=== PATIENT | female | born 2005 | race Caucasian/White ===

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

== ENCOUNTER 2025-02-18 07:09 | Emergency (ER) | payer BC, SELFPAY ==
--- OUTSIDE RECORDS SUMMARY | 2025-02-18 07:11 | XMS_ITS | Clinical Summary ---
Author Organization [place] Address [facility] [place] [address] Care Team Providers Care Cushion Sewer Name Role Phone Augustine Elizabeth MD Unavailable [phone] Shahnaz Singletary Primary Care Provider [phone] Denys Ruiz MD Unavailable [phone] David Aj DO Unavailable [phone] Allergies Active AllergyReactionsCriticalityNoted DateCommentsLatexDizziness,Hives,Rash, Shortness Of RvecdnGjcs41/25/2023SoapHives,CcfaZana83/14/2018 Medications MedicationSigDispense QuantityRefillsLast FilledStart DateEnd DateStatus ferrous sulfate (FEROSUL) 325 (65 Fe) MG tablet Take 325 mg by mouth daily (with breakfast)Active ibuprofen (ADVIL/MOTRIN) 600 MG tablet Take 600 mg by mouth08/05/2021ctive Vit-Fe Fumarate-FA (PNV PLUS MULTIVITAMIN) 27-1 MG TABS per tablet Take 1 tablet by mouth dailyActive amoxicillin (AMOXIL) 400 MG/5ML suspension Indications:S/P tonsillectomyTake 10 mLs (800 mg) by mouth 2 times daily 20 mL 02/24/2023ctive 27-1 MG TABS Take 1 tablet by mouth daily08/01/2023ctive progesterone (PROMETRIUM) [address] 200 mg vaginally daily08/15/2023ctive metroNIDAZOLE (FLAGYL) 500 MG tablet Take 500 mg by mouth 2 times daily08/17/2023ctive magnesium chloride 535 (64 Mg) MG TBEC CR tablet Take 535 mg by mouth daily11/26/2022ctive Active Problems ProblemNoted DateDiagnosed DateChronic sore yqbozg7602/16/2023ryptic tonsil 02/16/2023hronic wirfkpybwwr35/14/2023 Family History Medical HistoryRelationCommentsAsthmaBrotherAsthmaMotherThyroid DiseaseMother ArthritisOthergrandparentsCancerOthergrandparentsCerebrovascular DiseaseOther grandmotherHypertensionOthergrandparentsAllergiesSisterRelationStatusComments BrotherMotherOtherSister Social History Tobacco UseTypesPacks/DayYears UsedDateSmoking Tobacco: NeverSmokeless Tobacco: Never Tobacco Cessation:Counseling Given: Not Answered Alcohol UseStandard Drinks/WeekCommentsNever0 (1 standard drink = 0.6 oz pure alcohol)PHQ-2AnswerDate RecordedPHQ-2 Sgbrw515dolescent EducationAnswer Date RecordedGetting School Help NeededNot on file12/03/2022CommentsNo Sex and Gender InformationValueDate RecordedSex Assigned at BirthNot on file Legal PjuXallnj15/04/2012 5:03 AM CSTGender IdentityNot on fileSexual OrientationNot on file Last Filed Vital Signs Vital SignReadingTime TakenCommentsBlood Phceptyp913/7002/24/2023 1:56 PM CHIEF SECURITY AND SAFETY OFFICER Oguri979402/24/2023 1:56 PM SBAKeqxaonprpf41.4 ??C (97.6 ??F)02/24/2023 1:56 PM CSTRespiratory Sqdw775704/27/2022 1:56 PM CSTOxygen Hhzqfwcetk95%02/24/2023 1:56 PM CSTInhaled Oxygen Concentration--Mcxaff55.6 kg (109 lb 5.6 oz)02/20/2023 11:14 AM CUOZwkkmk942 cm (5' 2.6)02/20/2023 11:14 AM CSTBody Mass Index19.62 02/20/2023 11:14 AM CHIEF SECURITY AND SAFETY OFFICER Plan of Treatment Health MaintenanceDue DateLast DoneCommentsADVANCE CARE SSBPUGNO2004ANNUAL REVIEW OF HM YXMMOA51 2004CHLAMYDIA MCPTBPBVZ2004YEARLY PREVENTIVE VISITPHQ-2 (once per calendar year)/03/2021 COVID-19 VACCINE (4 - season)/, 07/23/2020, 06/26/2020INFLUENZA VACCINE (#1)/, 12/07/2021, 11/12/2020, Additional history evwlxvTEX05/25/2025DTAP/TDAP/TD VACCINE (7 - Td or Tdap) , 06/30/2008, 06/27/2005, Additional history existsZOSTER VACCINE (1 of 2)01/28/2054HEPATITIS B RYDBAOWFcxdzjfzn86/26/2005, 2004, 2004, Additional history existsPNEUMOCOCCAL VACCINE: PEDIATRICS (0 to 5 YEARS) AND AT-RISK PATIENTS (6 to 49 YEARS)Aged Out03/03/2005, 2004, 2004, Additional history existsNo longer eligible based on patient's age to complete this topicHPV YUHDXTJJzitfshfh03/28/2017, 01/21/2016MENINGITIS PYHCOPWMhixcjxfi90/16/2021, 01/21/2016MENINGITIS B FJFBTKDAjokrbpjy12/14/2023, 11/19/2020HIV XEGFCJDLTJpvertasn55/27/2024HEPATITIS C SCREENINGCompleted 05/31/2023 Insurance * Guarantor: Lien ESPINOZA TypeRelation to PatientDate of BirthPhoneBilling AddressPersonal/KxszcrCcqmqb67/22/1975 [address] [place] [address] * Guarantor: Nima Espinoza TypeRelation to PatientDate of BirthPhone Billing AddressPersonal/CwhsxmZquw2004 [address] [address] [place] [address] * Guarantor: Lien ESPINOZA TypeRelation to PatientDate of BirthPhoneBilling AddressPersonal/OacohrPnduwo48/22/1975 [address] [place] [address] * Guarantor: Nima Espinoza TypeRelation to PatientDate of BirthPhone Billing AddressPersonal/HnxbytAnhr2004 [address] [address] [address] [place] [address] Care Teams Team MemberRelationshipSpecialtyStart DateEnd Date Shahnaz Singletary [address] [place] [address] PCP - General05/13/22 Augustine Elizabeth MD [facility] [address] [address] [place], Clinical06/03/21 Denys Ruiz MD [address] [facility] [address] [place], [place] [address] CQYizsveqlgzvytm47/2/23 David Aj DO [address] [place], [place] [address] [facility]09/26/23
--- OUTSIDE RECORDS SUMMARY | 2025-02-18 07:11 | XMS_ITS | Clinical Summary ---
Author Organization [facility] Address [address] [place] [address] Care Team Providers Care Wood Craftsman Name Role Phone Joanna Gerber MD Primary Care Provi shyla Allergies Active AllergyReactionsCriticalityNoted JebrVvvfbrszXgyslExzolBwovdk26/26/2024 CbfsYvtweOdjnbs60/26/2024 Medications MedicationSigDispense QuantityRefillsLast FilledStart DateEnd DateStatus Magnesium 200 mg tab Take 200 mg by mouth once daily.Active PROGESTERONE 50 MG VAGINAL SUP (AHC AMB MIXTURE) Active 5-GPNF-TEOAA ACID-OM3 ORAL Take by mouth.Active ondansetron (ZOFRAN ODT) 4 mg disintegrating tablet Indications:NauseaPlace 1 Tablet (4 mg) on the tongue every 8 hours if needed for Nausea/Vomiting for up to 8 doses. 8 Tablet 12/25/2023ctive polyethylene glycoL (MIRALAX) 17 gram/scoop powder Indications:Constipation, unspecified constipation typeMix 1 scoop (17 g) in liquid then take by mouth two times daily. After 5 days you may switch to taking this once daily 850 g 12/25/2023ctive ondansetron (ZOFRAN ODT) 4 mg disintegrating tablet Indications:UreterolithiasisPlace 1 Tablet (4 mg) on the tongue every 8 hours if needed for Nausea/Vomiting. 10 Tablet 01/31/2024ctive Active Problems ProblemNoted DateDiagnosed DateVaginal bleeding in , third trimester 10/30/2023 Social History Tobacco UseTypesPacks/DayYears UsedDateSmoking Tobacco: Never Assessed Interpersonal SafetyAnswerDate RecordedAre you being hit, kicked, pushed or yelled at (see row info)?No01/31/2024Interpersonal Safety Abuse 12 - 18Not on file01/31/2024Interpersonal Safety Ambulatory VulnerabilityNot on file01/31/2024 CommentsNoSex and Gender InformationValueDate RecordedSex Assigned at BirthNot on fileLegal OgdNdtvfl61/13/2024 9:16 AM CDTGender IdentityNot on file Sexual OrientationNot on file Obstetrics History GravidaParaTermPretermABIABSABEctopicMultipleLivingLive Coloxp1RurpJfbocuwIC Total LaborLabor/2nd/0nnLwygfsAlyQewlOgvdGNTUodU3N5WnkeEdfcHmstpin Last Filed Vital Signs Vital SignReadingTime TakenCommentsBlood Qfptvkjb92/5801/31/2024 1:05 PM SALES AND OPERATIONS TRAINEE Fugtb863301/31/2024 1:05 PM PNULuavfbkewry21.7 ??C (98.1 ??F)01/31/2024 11:50 AM CSTRespiratory Sqzf4593 11:50 AM CSTOxygen Dupyosdans48%01/31/2024 1:05 PM CSTInhaled Oxygen Concentration--Zquzpi60.4 kg (106 lb 11.2 oz)01/31/2024 12:57 PM FCHVyoaai374.9 cm (5' 1)01/31/2024 12:57 PM CSTBody Mass Index20.16 01/31/2024 12:57 PM SALES AND OPERATIONS TRAINEE Plan of Treatment Health MaintenanceDue DateLast DoneCommentsTetanus reulehz5601/28/2015Depression screening for age 12+2016HIV for age 15-6501/28/2019HPV series for age 9- 45 (1 - 3-dose series)01/28/2019Meningococcal series for age 11-21 (1 - 2-dose series)2020BMI (ht and wt on same day) for age 18+01/28/2022Hepatitis C screening for age 18-7901/28/2022Hepatitis B series for 19+ (1 of 3 - 19+ 3-dose series)3COVID-19 vaccine series (3 - 2024- season)2024 07/27/2021, 07/23/2020Influenza Vaccine (#1)2024Pap test for age 21-65 01/28/2025Pneumococcal series for age 6-49Aged OutNo longer eligible based on patient's age to complete this topic Insurance * Guarantor: Bhanu Marrero TypeRelation to PatientDate of BirthPhone Billing AddressPersonal/ElgmlmKksb[address] [place] [address] Care Teams Team MemberRelationshipSpecialtyStart DateEnd Date Joanna Gerber MD [address] [place] [address] PCP - GeneralFamily Practice10/30/23
--- OUTSIDE RECORDS SUMMARY | 2025-02-18 07:11 | XMS_ITS | Encounter Summary ---
Author Organization [facility] Address [address] [place] [address] Care Team Providers Care Service Order Taker Name Role Phone Joanna Gerber M.D. Primary Care Provider Reason for Referral * Outpatient (Routine) - AuthorizedSpecialtyDiagnoses / ProceduresReferred By ContactReferred To ContactFamily Medicine Rhoda Mathias P.A.-C., M.S. [address] [place] [phone] Phone: tel: fax: [facility] Region Referral IDStatusReasonStart DateExpiration DateVisits RequestedVisits [id number]/1/20256/ Scheduling Instructions Monday Pap Smear Clinic or regular PCP clinic (M-F) ICE PATIENT CARE SECRETARY Encounter Details DateTypeDepartmentCare Team (Latest Contact Info)Lxtmjtpgtgr35/01/2025Orders Only [facility] [place] [facility] Rh[facility]C., M.S. [address] [place] [phone] Social History Tobacco UseTypesPacks/DayYears UsedDateSmoking Tobacco: NeverSmokeless Tobacco: NeverAlcohol UseStandard Drinks/WeekCommentsNever0 (1 standard drink = 0.6 oz pure alcohol)Hunger Vital SignAnswerDate RecordedWithin the past 12 months, you worried that your food would run out before you got the money to buymore. Sometimes true10/14/2024Within the past 12 months, the food you bought just didn't last and you didn't have money to get more.Never true10/14/2024PRAPARE - TransportationAnswerDate RecordedIn the past 12 months, has lack of transportation kept you from medical appointments or from getting medications? Yes10/14/2024In the past 12 months, has lack of transportation kept you from meetings, work, or from getting things needed for daily living?No10/14/2024HC UtilitiesAnswerDate RecordedIn the past 12 months has the electric, gas, oil, or water company threatened to shut off services in your home?No10/14/2024 DepressionAnswerDate RecordedPHQ-9 Total Score (max 27) Housing StabilityAnswerDate RecordedWhat is your living situation today?I have a steady place to live10/14/2024EducationAnswerDate RecordedWhat is the highest level of school you have completed or the highest degree you have received?High school kalpqqzs43/29/2024CommentsUnknownSex and Gender InformationValue Date RecordedSex Assigned at DqwrjRievzs60/11/2024 9:38 AM CSTLegal SexFemale 02/17/2023 12:48 PM CSTGender NgtukyhcSswbpd96/11/2024 9:38 AM CSTSexual HlweisfzfvnAnbbzlxw93/11/2024 9:38 AM CSTOccupationIndustryJob Start DateJob End DateUnemployedNot on fileNot on fileNot on filedocumented as of this encounter Plan of Treatment NameTypePriorityAssociated DiagnosesOrder ScheduleFamily Medicine office visit (clinic)Outpatient ReferralRoutineExpected: 02/06/2025, Expires: 08/02/2025 documented as of this encounter Visit Diagnoses Not on filedocumented in this encounter Additional Health Concerns AssessmentNoted TimePHQ-9 Depression Total Score: 12:57 PM HOSPICE PATIENT CARE SECRETARY documented as of this encounter Care Teams Team MemberRelationshipSpecialtyStart DateEnd Date Joanna Gerber M.D. [address] [place] [address] PCP - GeneralFamily Oemizibi17/15/23documented as of this encounter
--- OUTSIDE RECORDS SUMMARY | 2025-02-18 07:11 | XMS_ITS | Clinical Summary ---
Author Organization [facility] Address [address] [place] [address] Care Team Providers Care Alarm Mechanic Name Role Phone Joanna Gerber M.D. Primary Care Provider Source Comments Patient records contain information from all sites at [facility]. For routine questions regarding patient records, call [phone] during business hours, M-F 8:00 AM - 5:00 PM Central Time. Record requests for emergency care only can be directed to [phone] at any time.[facility] Allergies Active AllergyReactionsCriticalityNoted MonfKuxrxgulBprpwSxkaFqfbsz62/25/2023 SoapHives (Reselect Reaction)High05/04/2021 Medications * This document contains information received from the source organization and may not represent a complete record from that organization. MedicationSigDispense QuantityRefillsLast FilledStart DateEnd DateStatus lactic eess-eqrrhz-zieyrzddl (Phexxi) 1.8-1-0.4 % gel Insert 5 g into the vagina as needed (for contraception) for up to 12 doses. Immediately prior to sex or up to one hour prior. Must repeat if another act of sex greater than one hour of time has elapsed. 60 g 4Active norethindrone-ethinyl estradiol-iron 1 mg-20 mcg (21)/75 mg (7) per tablet Take 1 tablet by mouth daily. 84 tablet /6Active Active Problems ProblemNoted DateDiagnosed DateCounseling Control And Glkwxxw4910/15/2024 Poor Weight Gain10/15/2024nxiety Disorder Srnegopbjhv54/12/2025Tonsillitis Znuwisy3902/16/2023 Resolved Problems ProblemNoted DateDiagnosed DateResolved Date31 Weeks Gestation ervical Shortening Second Zrsptqvzr36 Overview (11/08/2023): Was seen in [place] for vaginal bleeding with cervical dilatation. Had dilated up to 3 cm. On 10/30 she received her 1st dose of Celestone. 11/08/23 follow up visit shows cervix to be dilated about 1 cm and only about 50% effaced. Patient had minimal contractions. Maternal Care For Other Abnormalities Of Cervix Second Wyapuyceb56/14/2024 01/15/2024 Overview (08/18/2023): Patient has a closed cervix with no bulging membranes and is already on vaginal progesterone. Plan MFM consult early next week to discuss possible option of cervical cerclage. One week cervical length ordered. Encounter For Supervision Of Normal First Unspecified Trimester Overview (11/15/2023): G1 Datin+5 05/31/23 wk US FOB: Ask Carrier/aneuploidy screening: Ask Rubella p, Rh p Covid Vaccine: Ask Influenza vaccine: Ask anatomy scan: OGTT: Hb at 28 weeks: Tdap: Rhogam?: GBS: PPBC: Presentation at 36 wks: Patient admitted in [place] for bleeding with cervical change had dilated to 3 cm. She received betamethasone x2 doses. 11/08/2023:cx 1/50/-2 Next visit: Consider checking cervix. 11/15/2023 exam shows cervix to be unchanged at 1 cm and minimally effaced, might be somewhat better than last exam. Next 3 weeks of visits through 35+5 are ordered. Ultrasound ordered on 11/21. Issues: 1st Underweight Other Chronic Diseases Of Tonsils And Dwvjqkgl69 Encounters * This document contains information received from the source organization and may not represent a complete record from that organization. DateTypeDepartmentCare BineSnlfavyvugk21/01/2025Orders Only [facility] Rhoda Mathias P.A.-C., M.S. from Last 3 Months Immunizations ImmunizationAdministration DatesNext Vld3uOPB14/28/2017,01/21/2016DTaP (Infanrix, Tripedia)06/30/2008,06/27/2005DTaP / Hep B / IPV (Pediarix)2004 ,2004,2004H1N1 All Forms02/13/2009,01/13/2009HepA Adult06/27/2005 HepA Pediatric/Iiefueahpv03/28/2007,06/27/2005HepB Pediatric/Adolescent 2004Hib (HbOC) (discontinued)03/03/2005,2004,2004Hib (PRP-OMP) (PedvaxHIB)03/03/2005,2004,2004Hib (PRP-T) (ACTHIB, HIBERIX) 2004IPV06/30/2008Influenza TIV (IM)12/23/2010,01/08/2010,04/04/2005, 03/03/2005Influenza, Injectable, Idugucozkkzi11/22/2017,12/31/2014,12/23/2013 Influenza, Seasonal, Kcgcujzmht03/20/2011,01/08/2010Influenza, Unspecified 11/28/2011,04/04/2005,03/03/2005MCV4 (Menactra)(Discontinued)11/19/2020, 01/21/2016MMR06/30/2008,03/03/2005MenB (TRUMENBA)05/17/2022,1PCV7 (discontinued)03/03/2005,2004,2004,03/29/20041303SCZA-FIW-3 (COVID-19) - PFIZER (Discontinued)(12 years or older)06/26/2020Tdap10/04/2023,01/21/2016VAR 06/30/2008,03/03/2005influenza trivalent vaccine (6 months and older)(PF) 12/10/2012,12/03/2008influenza vaccine quad (FLUZONE/FLUARIX) (6 months and older)(PF)12/07/2021,11/12/2020,12/27/2019,12/20/2018,12/08/2017,12/18/2015 Family History Medical HistoryRelationNameCommentsFanconi anemiaBrother 5Heart defectBrother 5 ?BAVHeart attackFather's BrotherHeart diseaseMaternal Great GrandfatherMigraines MotherHeidiMiscarriages (2 or more)/ pyzopsjcoeQwtgcfQvnqcf7Sszinyerln hip dysplasiaNieceTremorPaternal Cousin 1DementiaPaternal GrandfatherBillStroke Paternal GrandfatherBillDementiaPaternal GrandmotherRelationNameStatusComments Brother 1AliveBrother 2AliveBrother 3AliveBrother 4AliveBrother 5AliveDaughter AliveFather's BrotherDeceased (Age 54)Father's Sister 1AliveFather's Sister 2 AliveMaternal Cousin 1AliveMaternal Cousin 2AliveMaternal Cousin 3AliveMaternal Cousin 4AliveMaternal Cousin 5AliveMaternal Cousin 6AliveMaternal Cousin 7Alive Maternal Cousin 8AliveMaternal Cousin 9AliveMaternal Cousin 10AliveMaternal Great GrandfatherAliveMotherHeidiMother's Brother 1AliveMother's Brother 2Alive Mother's Sister 1Deceased (Age 22)d.MVAMother's Sister 2AliveNieceAlivePaternal Cousin 1AlivePaternal Cousin 2AlivePaternal Cousin 3AlivePaternal Grandfather BillPaternal Grandmother Social History Tobacco UseTypesPacks/DayYears UsedDateSmoking Tobacco: NeverSmokeless [...] RecordedIn the past 12 months has the dotloop, gas, oil, or water [employer] threatened to shut off services in your home?No10/14/2024 DepressionAnswerDate RecordedPHQ-9 Total Score (max 27)7103/16/2023 Housing StabilityAnswerDate RecordedWhat is your living situation today?I have a steady place to live10/14/2024EducationAnswerDate RecordedWhat is the highest level of school you have completed or the highest degree you have received?High school /29/2024CommentsUnknownSex and Gender InformationValue Date RecordedSex Assigned at WywbzLkynrp76/11/2024 9:38 AM CSTLegal SexFemale 02/17/2023 12:48 PM CSTGender LhaoychuPqwkto91/11/2024 9:38 AM CSTSexual XlolmamjnbpNsnrbgnj78/11/2024 9:38 AM CSTOccupationIndustryJob Start DateJob End DateUnemployedNot on fileNot on fileNot on file Last Filed Vital Signs Vital SignReadingTime TakenCommentsBlood Iwbiqapp842/6801/15/2024 12:56 PM TELEGRAPHIC TYPEWRITER OPERATOR CHIEF Pwsgo402701/15/2024 12:56 PM MAGExhgiezsszl06.7 ??C (98.1 ??F)01/15/2024 12:56 PM CSTRespiratory Zpfl934811/01/2023 8:20 AM CDTOxygen Iwqrodsbrv203%11/01/2023 11:10 AM CDTInhaled Oxygen Concentration--Xdfpme13.8 kg (105 lb 6.1 oz)01/15/2024 12:56 PM ZCNXnixmc032.5 cm (5' 3.58)01/15/2024 12:56 PM CSTBody Mass Index18.33 01/15/2024 12:56 PM TELEGRAPHIC TYPEWRITER OPERATOR CHIEF Plan of Treatment Health MaintenanceDue DateLast DoneCommentsCervical/Vaginal Cancer Screening 2004TB Screening during Well Child Visit week Well Child Check-Up month Well Child Check-Up month Well Child Check-Up month Well Child Check-Up month Well Child Check-Up month Well Child Check-Up month Well Child Check-Up year Well Child Check-Up month Well Child Check-Up year Well Child Check-Up12/28/2006Well Child Check-Up Completed in Past Year year Well Child Check-Up year Well Child Check-Up year Well Child Check-Up year Well Child Check-Up year Well Child Check-Up12/28/201312 year Well Child Check-Up year Well Child Check-Up12/28/201614 year Well Child Check-Up12/28/201715 year Well Child Check-Up year Well Child Check-Up year Well Child Check-Up year Well Child Check-Up year Well Child Check-Up12/29/2023epression Screening (Annual PHQ-2)03/06/2024hlamydia and Gonorrhea Lzergldyw34/27/838330/ COVID-19 Vaccine ( season)/, 07/23/2020, 06/26/2020Influenza Vaccine (#1)/06/2021, 11/12/2020, 12/27/2019, Additional history cnloda56 year Well Child Check-Up12/28/2024Well Child Check- Up (WCC)12/28/2024DTaP,Tdap,and Td Vaccines (8 - Td or Tdap)10/03/2033 10/04/2023, 01/21/2016, 06/30/2008, Additional history existsHepatitis B BfsdtgyfCyyqudbyi51/26/2005, 2004, 2004, Additional history exists Pneumococcal vaccine (0-49 years)Aged Out03/03/2005, 2004, 2004, Additional history existsNo longer eligible based on patient's age to complete this topicIPV PejsjkljIoywcfzgu21/27/2009, 2004, 2004, Additional history existsVaricella NyapykpmEqgdawqsl46/27/2009, 03/03/2005HPV Vaccines Lqdhktssa18/28/2017, 01/21/2016Meningococcal PampcazAtrcunwim64/16/2021, 01/21/2016MenB SbvzimvOtusngiry51/14/2023, 11/19/2020HIV ScreeningCompleted 05/02/2023Hepatitis C KiuptdzxhXjrrurvif77/27/2024 Procedures Procedure NamePriorityDate/TimeAssociated DiagnosisCommentsHCV AB SCRN , SGmxxnkb71/27/2024 2:43 PM CDT Encounter For Supervision Of Normal First Unspecified Trimester (HCC) HIV-1/-2 AG AND AB SCRN, LMPHVDWxwfbkc10/27/2024 1:47 PM TELEGRAPHIC TYPEWRITER OPERATOR CHIEF Examination Normal First First Trimester (HCC) CHLAMYDIA/GONORRHOEAE AMPLIFIED ONZEewhhse26/27/2024 1:45 PM TELEGRAPHIC TYPEWRITER OPERATOR CHIEF Examination Normal First First Trimester (HCC) from Last 3 Months or Most Recently Relevant to Health Maintenance Results * Hepatitis C Virus Antibody Screen (05/31/2023 2:43 PM CDT)Component ValueRef RangeTest MethodAnalysis TimePerformed AtPathologist SignatureHCV Ab Scrn , XLpviongiAtbgombw60/28/2024 8:38 AM CDTSDSCComment: Opjtaf-tu-ujfyzm ratio is <1.00.Specimen (Source)Anatomical Location / LateralityCollection Method / VolumeCollection TimeReceived TimeBlood (Blood, Venous)05/31/2023 2:43 PM CDT03/ 6:52 AM CDT Narrative Authorizing ProviderResult TypeResult StatusJoanna Gerber M.D.LAB MICROBIOLOGY - BLOOD ORDERABLESFinal ResultPerforming OrganizationAddress City/State/ZIP CodePhone Number [facility] [address] [place] [address] [facility] [address] [place] [address] * HIV-1/-2 Ag and Ab Scrn, Plasma (05/02/2023 1:47 PM TELEGRAPHIC TYPEWRITER OPERATOR CHIEF)Component ValueRef RangeTest MethodAnalysis TimePerformed AtPathologist SignatureHIV Ag/Ab Scrn, AIencntexDshbyrtp35/28/2024 2:04 PM CSTWSCAComment: Negative result does not rule out HIV infection. If exposure to HIV infection occurred <14 days ago, contact the laboratory to request addition of HIV-1/HIV-2 RNA detection , Plasma (HPP12). HIV-1 p24 Ag Scrn, EDyxatkyrSvqoqguy88/28/2024 2:04 PM CSTWSCAComment: Negative result does not rule out HIV infection. If exposure to HIV infection occurred <14 days ago, contact the laboratory to request addition of HIV-1/HIV-2 RNA detection , Plasma (HPP12). HIV-1 Ab Scrn, PVawklrchByugmovg03/28/2024 2:04 PM CSTWSCAComment: Negative result does not rule out HIV infection. If exposure to HIV infection occurred <14 days ago, contact the laboratory to request addition of HIV-1/HIV-2 RNA detection , Plasma (HPP12). HIV-2 Ab Scrn, BYgeieqkbVsrqnobm89/28/2024 2:04 PM CSTWSCAComment: Negative result does not rule out HIV infection. If exposure to HIV infection occurred <14 days ago, contact the laboratory to request addition of HIV-1/HIV-2 RNA detection , Plasma (HPP12). Specimen (Source)Anatomical Location / LateralityCollection Method / Volume Collection TimeReceived TimeBlood (Blood, Venous)05/02/2023 1:47 PM TELEGRAPHIC TYPEWRITER OPERATOR CHIEF 05/03/2023 11:55 AM TELEGRAPHIC TYPEWRITER OPERATOR CHIEF Narrative Authorizing ProviderResult TypeResult StatusJoanna Gerber M.D.LAB MICROBIOLOGY - BLOOD ORDERABLESFinal ResultPerforming OrganizationAddress City/State/ZIP CodePhone Number [facility] [address] [place] [address], [facility] [facility] [place] [address] [place] [address] * Chlamydia / Gonorrhoeae Amplified RNA (05/02/2023 1:45 PM TELEGRAPHIC TYPEWRITER OPERATOR CHIEF)ComponentValue Ref RangeTest MethodAnalysis TimePerformed AtPathologist SignatureSourceUrine, Urine, First Alrarp5905/02/2023 10:51 PM CSTMKTOChlamydia trachomatis amplified PJGYvwkmcnjEnalstim52/27/2024 10:51 PM CSTMKTOSourceUrine, Urine, First Voided 05/02/2023 10:51 PM CSTMKTONeisseria gonorrhoeae amplified RNANegativeNegative 05/02/2023 10:51 PM CSTMKTOSpecimen (Source)Anatomical Location / Laterality Collection Method / VolumeCollection TimeReceived TimeUrine (Urine, First Voided)05/02/2023 1:45 PM CST05/02/2023 6:53 PM TELEGRAPHIC TYPEWRITER OPERATOR CHIEF Narrative Authorizing ProviderResult TypeResult Sandra Gerber M.D.LAB MICROBIOLOGY - GENERAL ORDERABLESFinal ResultPerforming OrganizationAddress City/State/ZIP CodePhone Number [facility] [place] [address], [facility] [address] [address] from Last 3 Months or Most Recently Relevant to [place] [address] Advance Directives For more information, please contact: [phone] * Full Code (Latest Code Status on File) Date ActivatedDate InactivatedComments10/31/2023 1:26 AM11/01/2023 1:25 PMQuestion AnswerCommentsFull Code:* Discussed Care Teams Team MemberRelationshipSpecialtyStart DateEnd Date Joanna Gerber M.D. [address] [place] [phone] PCP - GeneralFamily Pnpackhe81/15/23
[2025-02-18 07:15] VITALS: BP 114/71; PULSE 70; RESP 20; TEMP 37; O2SAT 97; BMI 18.9
[2025-02-18 07:22] VITALS: RESP 20
--- NOTE | 2025-02-18 07:43 | CRLHL7_ITS ---
For Patients: As a result of the Century Cures Act, medical imaging exams and procedure reports are released immediately into your electronic medical record. You may view this report before your referring provider. If you have questions, please contact your health care provider. Indication: [place] teeth pulled 01/20/2025 with right facial and jaw swelling with pain with Technique: Volumetric multidetector CT images of the orbital and facial soft tissues were obtained after the administration of low osmolar intravenous contrast. 49 cc Isovue 370 low osmolar intravenous contrast Comparison: None available. Findings: The partially visualized brain parenchyma is normal in attenuation without evidence of abnormal enhancement. The globes and extra-ocular muscles are unremarkable. There is no significant periorbital soft tissue swelling. The retrobulbar fat is unremarkable without evidence of inflammatory change or fluid collection. The paranasal sinuses are clear. The mastoid air cells are clear. The nasopharynx is unremarkable. The fossae of Rosenmuller are clear. There is marked right facial and right perimandibular soft tissue swelling. Postoperative changes status post bilateral upper and lower wisdom teeth extraction with demonstration of small radiopaque fragment adjacent to the right mandible of uncertain clinical etiology this finding is best seen on series 3, image 56. No definite rim enhancing or defined fluid collection is identified. No evidence of significant inflammatory changes of the base of tongue. Mild thickening of the right platysma. There are reactive appearing cervical lymph nodes. The facial osseus structures are grossly intact without acute osseus abnormality. Impression: 1. Postoperative changes of the maxilla and bilateral mandible status post wisdom tooth extraction with empty extraction sockets. Severe right superficial perimandibular and facial soft tissue swelling is appreciated without evidence of obvious rim enhancing fluid collection. There are reactive lymph nodes and thickening of the right platysma. Incidental note is made of a small osseous fragment adjacent to the angle of the right mandible of uncertain clinical etiology and could represent sequela of prior dental extraction. No evidence of inflammatory change within the adjacent parapharyngeal spaces or base of tongue to suggest Dave`s angina. Please note that all CT scans at this facility use dose modulation, iterative reconstruction, and/or weight-based dosing when appropriate to reduce radiation dose to as low as reasonably achievable. Dictated by Victorino Houston MD @ 02/18/2025 9:14:53 AM (Electronically Signed)
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
[2025-02-18 07:49] LABS: Hematocrit* 37.0 % (33.0-51.0); Hemoglobin* 12.3 gm/dL (12.0-16.0); Immature Granulocytes Abs Auto 0.00 K/uL (0.00-0.30); Immature Granulocytes Pct Auto 0.0 %; Mean Corpuscular HGB Conc 33 gm/dL (32-36); Mean Corpuscular Hemoglobin 30 pg (26-34); Mean Corpuscular Volume 89 fL (80-100); RDW Coefficient of Variation % 12.0 % (11.5-15.5); Red Blood Count* 4.15 m/uL (4.00-5.20); White Blood Count* 7.41 K/uL (4.50-11.00)
[2025-02-18 07:54] LABS: Lymphocytes Absolute Auto 1.10 K/uL (0.90-2.90); Slide Review Reflex No
[2025-02-18 08:01] LABS: Chloride* 108 mmol/L (96-114); Potassium* 3.9 mmol/L (3.6-5.1); Sodium* 136 mmol/L (135-149)
[2025-02-18 08:04] LABS: Anion Gap 5 mEq/L (7-15); Blood Urea Nitrogen* 10 mg/dL (5-24); Calcium* 8.4 mg/dL (8.4-10.6); Carbon Dioxide* 23 mmol/L (20-32); Creatinine* 0.6 mg/dL (0.5-1.5); Est. Creatinine Clearance* 106.21; Estimated Glomerular Filt Rate 131 ml/min; Glucose* 92 mg/dL (60-115)
[2025-02-18 08:10] LABS: Ur HCG Qualitative* Negative (Negative)
== END 2025-02-18 09:37 | disposition home or self-care (01) ==
PROVIDERS: Family Medicine; Emergency Provider Family Medicine
DX: R22.0 Localized swelling, mass and lump, head (principal)
CPT/HCPCS: 36415; 70487; 80048; 81025; 85025; 86140; 99284; 99285; Q9967